=== PATIENT | male | born 1965 | race Caucasian/White ===

== ENCOUNTER → 2016-11-22 | Outpatient (CLI) | payer OTHER ==
[~2016-11-22] MED LIST: ASPI325T32 PO; ATOR10TA65 PO; HYDR-905 PO; LEVO200T6 PO; LYRI25 PO; PANT40TA4 PO; ULT50 PO
--- NOTE | 2016-11-22 10:11 | RADRPT ---
PROCEDURE: XR right knee. CLINICAL INDICATION: Knee pain. TECHNIQUE: AP weightbearing and lateral weightbearing views are available for review. COMPARISON: 11/12/2016 FINDINGS: There is a total knee replacement. There is no evidence of loosening of the prosthesis. The osseous structures are normal in mineralization, architecture and alignment No acute fracture or dislocation is seen.No osseous lesions are identified. The soft tissues are unremarkable . IMPRESSION: Unremarkable total knee replacement. RPTAT: HGDB .Silvano Bauman MD, MD Date Time Electronically viewed and signed by .Silvano Bauman MD, on 11/22/2016 10:11 .B/
== END | disposition home or self-care (01) ==
LOC: HKI 09:29
PROVIDERS: ATTEND Orthopaedic Surgery
DX: Z47.1 Aftercare following joint replacement surgery (principal); M17.11 Unilateral primary osteoarthritis, right knee; Z96.651 Presence of right artificial knee joint
CPT/HCPCS: 73560; G0463

== ENCOUNTER → 2016-11-29 | Outpatient (CLI) | payer OTHER | END | disposition home or self-care (01) | LOC: HKI 11:04 | PROVIDERS: ATTEND Orthopaedic Surgery | DX: Z47.1 Aftercare following joint replacement surgery (principal); Z96.651 Presence of right artificial knee joint | CPT/HCPCS: G0463 ==

== ENCOUNTER → 2016-12-13 | Outpatient (CLI) | payer OTHER ==
[~2016-12-13] MED LIST changes: +ATOR20TA38 PO; +TRAM50TA2 PO; -ULT50 PO
== END | disposition home or self-care (01) ==
LOC: HKI 14:09
PROVIDERS: ATTEND Orthopaedic Surgery
DX: Z47.1 Aftercare following joint replacement surgery (principal); M25.661 Stiffness of right knee, not elsewhere classified; Z96.651 Presence of right artificial knee joint
CPT/HCPCS: G0463

== ENCOUNTER 2016-12-19 08:09 | Day surgery (SDC) | payer OTHER ==
[2016-12-19] VITALS (12 sets, daily range): BP systolic 111–121; BP diastolic 60–75; PULSE 52–68; RESP 12–21; Ht 193 cm; Wt 100.6 kg
[~2016-12-19] VITALS: Ht 193 cm; Wt 100.6 kg
[~2016-12-19 08:09] MED LIST changes: -ATOR20TA38 PO; +CELECOXIB 400 MG PO X1 DOSE PO ONE; +LACTATED RINGER'S 1,000 ML IV SCH; +PREGABALIN 300 MG PO X1 PO ONE; +oxyCODONE (CR) 10 MG TAB [oxyCONTIN] X1 DOSE PO ONE; +traMADOL 50 MG TAB X 1 DOSE PO ONE
[2016-12-19] MEDS ORDERED: traMADOL 50 MG TAB X 1 DOSE PO ONE (09:00)
[2016-12-19] MEDS ORDERED: LACTATED RINGER'S 1,000 ML IV SCH (09:00)
[2016-12-19] MEDS ORDERED: PREGABALIN 300 MG PO X1 PO ONE (09:00)
[2016-12-19] MEDS ORDERED: oxyCODONE (CR) 10 MG TAB [oxyCONTIN] X1 DOSE PO ONE (09:00)
[2016-12-19] MEDS ORDERED: CELECOXIB 400 MG PO X1 DOSE PO ONE (09:00)
[2016-12-19] MEDS ORDERED: ATOR20TA38 PO (09:27)
[2016-12-19] MEDS ORDERED: ROCURONIUM 50 MG INJ ONE (09:48)
[2016-12-19] MEDS ORDERED: ONDANSETRON 4 MG INJ ONE (09:48)
[2016-12-19] MEDS ORDERED: FENTAnyl 50 MCG/ML VIAL ONE (09:48)
[2016-12-19] MEDS ORDERED: SUCCINYLCHOLINE CHLORIDE 100 MG/5 ML SYG IV ONE (09:48)
[2016-12-19] MEDS ORDERED: PROPOFOL 20 ML ONE (09:48)
[2016-12-19] MEDS ORDERED: METOCLOPRAMIDE 10 MG INJ ONE (09:49)
--- NOTE | 2016-12-19 09:53 | HPN ---
Date/Time of Note Date/Time of Note DATE: 12/19/16 TIME: 09:53 Interval H&P Admission Note Pt. seen H&P reviewed: No system changes No changes from H&P by Dr. Teddy Marie on 12/18/16 GELY CORTEZ MD Dec 19, 2016 09:53
[2016-12-19] MEDS ORDERED: KETOROLAC 30 MG INJ ONE (10:21)
--- NOTE | 2016-12-19 10:27 | OPPN ---
Date/Time of Note Date/Time of Note DATE: 12/19/16 TIME: 10:26 Operative/Procedure Note Dictation # [id number] Pre-Operative Diagnosis Stiff Right TKA Post-Operative Diagnosis Same Procedure Right Knee LAURA Surgeon: GELY CORTEZ MD Anesthesiologist: CHEYENNE MORA MD Findings Able to flex up to 115 degrees Blood Usage/Administration None Implants/Grafts: Not applicable Estimated blood loss: none Drains: Not applicable Specimens: Not Applicable Complications: None Anesthesia type: general GELY CORTEZ MD Dec 19, 2016 10:27
[2016-12-19] MEDS ORDERED: FENTAnyl 50 MCG/ML VIAL IV PRN ×2 (10:30)
[2016-12-19] MEDS ORDERED: HYDROmorphONE (0.2 MG/ML) 10ML SYG IV PRN ×3 (10:30)
[2016-12-19] MEDS ORDERED: MEPERIDINE 25 MG INJ IV PRN (10:30)
[2016-12-19] MEDS ORDERED: KETOROLAC 30 MG INJ IV ONE (10:30)
[2016-12-19] MEDS ORDERED: ONDANSETRON 4 MG INJ IV PRN (10:30)
--- NOTE | 2016-12-19 10:58 | RADRPT ---
PROCEDURE: XR right knee. CLINICAL INDICATION: Knee pain. TECHNIQUE: AP and lateral view are available for review. COMPARISON: 11/06/2016 FINDINGS: There is a total knee replacement. There are rusty in the distal femur and proximal tibia, previou s ACL repair. There is no evidence of loosening of the prosthesis. The osseous structures are normal in mineralization, architecture and alignment No acute fracture or dislocation is seen.No osseous l esions are identified. The soft tissues are unremarkable . IMPRESSION: Unremarkable total knee replacement. RPTAT: HGDB .Silvano Bauman MD, MD Date Time Electronically viewed and signed by .Silvano Bauman MD, on 12/19/2016 10:58 .B/
--- NOTE | 2016-12-19 12:53 | OPR ---
DATE OF OPERATION: 12/19/2016 PREOPERATIVE DIAGNOSIS: Stiff right total knee arthroplasty. POSTOPERATIVE DIAGNOSIS: Stiff right total knee arthroplasty. OPERATION PERFORMED: Right knee manipulation under anesthesia. SURGEON: Juve Cortez MD ANESTHESIA: General endotracheal intubation. ANESTHESIOLOGIST: Dr. Jurado. COMPLICATIONS: None. DISPOSITION: Patient tolerated the procedure well and was taken to the recovery room in stable cond ition. INDICATIONS: The patient is a 51-year-old gentleman who recently underwent a right total knee arthr oplasty about 5 weeks ago. He has had difficulty achieving adequate flexion with physical therapy. I felt he would benefit from a manipulation under anesthesia. The risks, benefits, and alternative s of the procedure were explained in detail to the patient. I explained the risks to include but no t be limited to supracondylar femur fracture, dislodgement of the components, dislocation, persisten t pain and stiffness, and anesthetic complications such as heart attack, stroke, GI bleed, pneumonia and/or . Ample time was allowed for the patient to ask questions, all of which were addressed and answered. The patient understood the risks involved and wished to proceed. Informed consent w as signed prior to the procedure. DESCRIPTION OF PROCEDURE: The right knee was initialed with a marking pen to identify the correct o perative site. The patient was then brought to the operating room and transferred from [facility] to the operating table where he was anesthetized and intubated. Once he was fully relaxed, I gently manipulated the knee in extension to get a few degrees of extra extension and flexed the kn ee and could feel several adhesions dissipate. The knee was able to be flexed to 115 degrees as igor sured by a digital goniometer. The knee was documented with a digital picture. The patient was the n awakened, extubated, and taken to the recovery room in stable condition. Dictated By: JUVE CORTEZ MD EZ/NTS Conf#: [id number] DID#: [id number]
[2016-12-19] MEDS ORDERED: ATORVASTATIN 20 MG TAB PO SCH (21:00)
[2016-12-20] MEDS ORDERED: LEVOTHYROXINE 100 MCG TAB PO SCH (06:00)
== END 2016-12-19 12:07 | disposition home or self-care (01) ==
LOC: SDS 08:09
PROVIDERS: ATTEND Orthopaedic Surgery
DX: M25.661 Stiffness of right knee, not elsewhere classified (principal); E03.9 Hypothyroidism, unspecified; E78.5 Hyperlipidemia, unspecified
CPT/HCPCS: 27570; 73560; J0330; J1885; J2405; J2765; J3010

== ENCOUNTER → 2016-12-30 | Outpatient (CLI) | payer OTHER ==
[~2016-12-30] MED LIST changes: -ASPI325T32 PO; -ATOR10TA65 PO; +ATOR20TA38 PO; -CELECOXIB 400 MG PO X1 DOSE PO ONE; -HYDR-905 PO; -LACTATED RINGER'S 1,000 ML IV SCH; -LYRI25 PO; -PANT40TA4 PO; -PREGABALIN 300 MG PO X1 PO ONE; -TRAM50TA2 PO; -oxyCODONE (CR) 10 MG TAB [oxyCONTIN] X1 DOSE PO ONE; -traMADOL 50 MG TAB X 1 DOSE PO ONE
== END | disposition home or self-care (01) ==
LOC: HKI 09:31
PROVIDERS: ATTEND Orthopaedic Surgery
DX: Z47.89 Encounter for other orthopedic aftercare (principal); M25.661 Stiffness of right knee, not elsewhere classified; Z96.651 Presence of right artificial knee joint

== ENCOUNTER → 2017-01-29 | Outpatient (CLI) | payer OTHER ==
--- NOTE | 2017-01-29 17:46 | RADRPT ---
PROCEDURE: Right knee radiographs. CLINICAL INDICATION: Right knee pain. Postop. TECHNIQUE: Three views. Weight bearing. Frontal, lateral, and patellar view. COMPARISON: 12/19/2016. FINDINGS: There is no fracture or dislocation. There is a moderate joint effusion and there is diffuse soft tissue swelling. There is a total right knee arthroplasty which appears satisfactory. Tariq are present in the distal femur laterally and proximal tibia laterally. IMPRESSION: 1. Moderate joint effusion and diffuse soft tissue swelling. 2. Postoperative changes with right knee arthroplasty. RPTAT: QQ .Kirill Cornelius MD, MD Date Time Electronically viewed and signed by .Kirill Cornelius MD, on 01/29/2017 17:45 .R/
== END | disposition home or self-care (01) ==
LOC: HKI 08:49
PROVIDERS: ATTEND Orthopaedic Surgery
DX: Z47.1 Aftercare following joint replacement surgery (principal); M25.60 Stiffness of unspecified joint, not elsewhere classified; M17.11 Unilateral primary osteoarthritis, right knee; Z96.651 Presence of right artificial knee joint
CPT/HCPCS: 73562; G0463